=== PATIENT | male | born 1995 | race Caucasian/White ===

== ENCOUNTER 2017-04-11 00:58 | Emergency (ER) | payer OTHER ==
[~2017-04-11] VITALS: Ht 170.2 cm; Wt 70.0 kg
[2017-04-11] MEDS ORDERED: SODIUM CHLORIDE 0.9% 1,000 ML IV ONE ×2 (05:11→06:45)
[2017-04-11 05:29] LABS: BASOPHILS % 0.4 % (0.0-2.0); EOSINOPHILS % 3.6 % (0.0-5.0); HEMATOCRIT. 43.1 % (42.0-52.0); HEMOGLOBIN. 14.5 g/dL (14.0-18.0); LYMPHOCYTES % 57.9 % (20.0-50.0); MEAN CORPUSCULAR HEMOGLOBIN 29.5 pg (28.0-32.0); MEAN CORPUSCULAR VOLUME 87.7 fL (80.0-94.0); MEAN PLATELET VOLUME 8.3 fl (7.4-10.4); MONOCYTES % 6.7 % (2.0-8.0); NEUTROPHILS % 31.4 % (40.0-76.0); PLATELET 193 x1000/uL (130-400); RED BLOOD CELL COUNT 4.92 mill/uL (4.7-6.1); RED CELL DISTRIBUTION WIDTH 13.5 % (11.6-14.6)
[2017-04-11 05:33] LABS: PROTHROMBIN TIME 10.7 sec (9.4-11.6)
[2017-04-11 05:45] LABS: CHLORIDE 108 mEq/L (98-107)
[2017-04-11 05:48] LABS: CREATINE KINASE 712 IU/L (39-308)
[2017-04-11] MEDS ORDERED: KETOROLAC 30MG/ML VIAL IV ONE (06:45)
[2017-04-11 08:08] VITALS: BP 97/43
== END 2017-04-11 08:13 | disposition home or self-care (01) ==
LOC: ER 00:58
DX: M79.1 Myalgia (principal); M62.82 Rhabdomyolysis; F20.9 Schizophrenia, unspecified; Z59.0 Homelessness
CPT/HCPCS: 36415; 80053; 82550; 85025; 85610; 96360; 96361; 99285; J7030; Z7610